=== PATIENT | female | born 2000 | race African-American/Black ===

== ENCOUNTER 2022-07-13 19:41 | Emergency (ER) | payer MEDICAID ==
[~2022-07-13] VITALS: Ht 180.3 cm; Wt 128.6 kg
[2022-07-13 19:43] VITALS: TEMP 98.4
[2022-07-13 20:04] LABS: COLLECTION METHOD CLEAN CATCH
[2022-07-13 20:13] LABS: MUCOUS Present (NOT PRESENT); URINE APPEARANCE Clear (CLEAR/HAZY); URINE BACTERIA Rare /hpf (NONE SEEN); URINE COLOR Yellow (YELLOW)
[2022-07-13 20:14] LABS: URINE BLOOD Negative (NEGATIVE); URINE GLUCOSE Negative (NEGATIVE); URINE KETONE Negative (NEGATIVE); URINE NITRATE Negative (NEGATIVE); URINE PROTEIN(semi-quant) TRACE (NEGATIVE); URINE UROBILINOGEN 0.2 E.U/dL (0.2-1.0)
[2022-07-13 20:59] LABS: BASO # 0.1 K/mm3 (0.0-0.2); BASO % 0.5 % (0.0-2.0); EOS % 5.6 % (0.0-4.0); GRAN # 11.5 K/mm3 (1.4-6.5); GRAN % 66.1 % (42.2-75.2); HEMATOCRIT 44.1 % (35.0-45.0); HEMOGLOBIN 14.5 g/dl (12.0-15.0); LYMPH # 3.9 K/mm3 (1.2-3.4); LYMPH % 22.2 % (20.0-51.0); MEAN CELL VOLUME 84 fl (80.0-95.0); MEAN CORPUSCULAR HEMOGLOBIN 28 pg (26-32); MEAN CORPUSCULAR HGB CONC 33 g/dl (33.0-37.0); MEAN PLATELET VOLUME 8.9 fl (7.4-10.4); MONO # 0.9 K/mm3 (0.1-0.6); MONO % 5.3 % (1.7-9.3); PLATELET COUNT 591 K/mm3 (130-400); RED BLOOD COUNT 5.25 M/mm3 (4.10-5.30); REDCELL DISTRIBUTION WIDTH-CV 13.5 % (11.5-14.5)
[2022-07-13 21:11] LABS: BILIRUBIN,TOTAL 0.4 mg/dL (0.2-1.2); C-REACTIVE PROTEIN 0.96 mg/dL (0.00-0.50); CALCIUM 10.3 mg/dL (8.4-10.2); CREATININE, serum 0.87 mg/dL (0.57-1.11); POTASSIUM 3.3 mmol/L (3.5-4.5); TOTAL PROTEIN 8.8 gm/dL (6.2-8.1)
[2022-07-14] MEDS ORDERED: ZOFRAN ODT4 MG PO (00:10)
[2022-07-14 00:24] VITALS: BP 115/79; PULSE 67
== END 2022-07-14 00:28 | disposition home or self-care (01) ==
LOC: COL.ER 19:41
PROVIDERS: Nurse Practitioner
DX: R10.32 Left lower quadrant pain (principal); R11.2 Nausea with vomiting, unspecified; Z28.310 Unvaccinated for COVID-19
CPT/HCPCS: J1885; J2270; J2405; J7030; Q9967